=== PATIENT | female | born 2000 | race African-American/Black ===

== ENCOUNTER 2021-06-20 18:00 | Emergency (ER) | payer BC, MEDICAID ==
[~2021-06-20] VITALS: Ht 154.9 cm; Wt 112.1 kg
[2021-06-20 18:03] VITALS: BP 167/98
--- NOTE | 2021-06-20 18:13 | ED GI ---
General Chief Complaint: Abdominal/GI Problems Stated Complaint: PELVIC PAIN History of Present Illness Date Seen by Provider: Jun 20, 2021 Time Seen by Provider: 18:13 Initial Comments 21-year-old female presents with intermittent vaginal pain. States she is getting "vaginal spasm", occurring intermittently and lasting a few seconds. Denies vaginal discharge or pelvic pain. She does have an IUD and was recently seen for the same thing without a pelvic exam. She is sexually active. Allergies and Home Medications Home Medications Ibuprofen 800 Mg Tablet, 800 MG PO Q8H PRN for PAIN Prescribed by: JACQUELINE BLANKENSHIP on 06/20/211834 Metronidazole 500 Mg Tablet, 500 MG PO BID Prescribed by: JACQUELINE CALLAHANSTLEAH on 06/20/211834 Patient Home Medication List Home Medication List Reviewed: Yes Review of Systems Review of Systems Constitutional: no symptoms reported Gastrointestinal: No Symptoms Reported; Denies Abdominal Pain, Denies Nausea, D enies Vomiting Genitourinary: See HPI; Denies Frequency, Denies Flank Pain; Pain Past Zdjimsz-Oplvpc-Abcqya Hx Patient Social History Tobacco Use?: No Physical Exam Vital Signs Vital Signs - First Documented 06/20/21 18:03 Temp 36.2 Pulse 93 Resp 16 B/P (MAP) 167/98 (121) Pulse Ox 100 O2 Delivery Room Air Capillary Refill : Height/Weight/BMI Height: '" Weight: lbs. oz. kg; BMI Method: General Appearance: WD/WN, no apparent distress Gastrointestinal: normal bowel sounds, non tender, soft; No guarding, No rebound Genital/Rectal: normal genital exam, normal vaginal exam, other (strings of IUD appropriately at the cervical os. profuse white discharge w fishy odor (c/w BV)) Progress/Results/Core Measures Results/Orders Lab Results Laboratory Tests Test 06/20/21 18:03 Range/Units Urine Color YELLOW Urine Clarity CLEAR Urine pH 7.0 5-9 Urine Specific [place] 1.010 L 1.016-1.022 Urine Protein NEGATIVE NEGATIVE Urine Glucose (UA) NEGATIVE NEGATIVE Urine Ketones NEGATIVE NEGATIVE Urine Nitrite NEGATIVE NEGATIVE Urine Bilirubin NEGATIVE NEGATIVE Urine Urobilinogen 0.2 < = 1.0 MG/DL Urine Leukocyte Esterase NEGATIVE NEGATIVE Urine RBC (Auto) NEGATIVE NEGATIVE Urine RBC NONE /HPF Urine WBC NONE /HPF Urine Squamous Epithelial Cells 2-5 /HPF Urine Crystals NONE /LPF Urine Bacteria NEGATIVE /HPF Urine Casts NONE /LPF Urine Mucus NEGATIVE /LPF Urine Culture Indicated NO My Orders Orders - JACQUELINE BLANKENSHIP DO Urinalysis (06/20/21 18:16) Vital Signs/I&O 06/20/21 18:03 Temp 36.2 Pulse 93 Resp 16 B/P (MAP) 167/98 (121) Pulse Ox 100 O2 Delivery Room Air Progress Progress Note : Progress Note Empiric treatment for bacterial vaginosis, explained the patient that this is not likely the cause of her "vaginismus" and follow-up is highly recommended. Departure Impression Primary Impression: Vaginismus Additional Impression: Bacterial vaginitis Disposition: HOME, SELF-CARE Condition: Improved Departure-Patient Inst. Decision time for Depature: 18:35 Referrals: NIK ESCALERA MD NO,LOCAL PHYSICIAN (PCP) Primary Care Physician Patient Instructions: Vaginismus, Bacterial Vaginosis (DC) Add. Discharge Instructions: See your local PCP or call Dr Escalera to schedule a female exam and evaluation in 2 weeks All discharge instructions reviewed with patient and/or family. Voiced understanding. Scripts Ibuprofen (Ibuprofen) 800 Mg Tablet 800 MG PO Q8H PRN for PAIN, #30 TAB 0 Refills Prov: LONDONSTJACQUELINE LYNN DO 06/20/21 Metronidazole (Metronidazole) 500 Mg Tablet 500 MG PO BID, #14 TAB Prov: JACQUELINE BLANKENSHIP DO 06/20/21 JACQUELINE BLANKENSIHP DO Jun 20, 2021 18:13
[2021-06-20 18:35] LABS: BACTERIA,URINE NEGATIVE /HPF; BILIRUBIN,URINE NEGATIVE (NEGATIVE); CLARITY,URINE CLEAR; COLOR,URINE YELLOW; GLUCOSE, URINE (UA) NEGATIVE (NEGATIVE); KETONES,URINE NEGATIVE (NEGATIVE); LEUKOCYTE ESTERASE ,URINE NEGATIVE (NEGATIVE); NITRITE,URINE NEGATIVE (NEGATIVE); PROTEIN,URINE NEGATIVE (NEGATIVE)
[2021-06-20] MEDS ORDERED: IBUP-1780 PO (18:35)
[2021-06-20] MEDS ORDERED: METR-145 PO (18:35)
== END 2021-06-20 18:38 | disposition home or self-care (01) ==
LOC: ER FS 18:02
DX: N94.2 Vaginismus (principal); N76.0 Acute vaginitis; Z97.5 Presence of (intrauterine) contraceptive device
CPT/HCPCS: 81000; 84703; 99282

== ENCOUNTER 2021-07-01 13:22 | Emergency (ER) | payer BC, MEDICAID ==
[~2021-07-01] VITALS: Ht 154.9 cm; Wt 106.6 kg
[~2021-07-01 13:22] MED LIST: IBUP-1780 PO; METR-145 PO
[2021-07-01 13:30] VITALS: BP 159/99
--- NOTE | 2021-07-01 13:45 | ED GU-Female ---
General Chief Complaint: - Reproductive Stated Complaint: SUPRAPUBIC PAIN History of Present Illness Date Seen by Provider: Jul 01, 2021 Time Seen by Provider: 13:45 Initial Comments 21-year-old female presents with suprapubic/pelvic pain. Patient reports is been going on for about 2 to 3 days. Patient was seen 2 days ago with an ultrasound by her primary care that showed ovarian cyst along with diagnosis of chlamydia. Patient is currently being treated for chlamydia and she reports she take the medication as prescribed. Patient reports she has irregular menstrual cycles is unsure when her last menstrual cycle was. She reports she is got some small spotting or bleeding. Patient with no other systemic complaints Allergies and Home Medications Allergies Coded Allergies: No Known Drug Allergies (Unverified , 07/01/21) Patient Home Medication List Home Medication List Reviewed: Yes Ibuprofen (Ibuprofen) 800 Mg Tablet, 800 MG PO Q8H PRN for PAIN Prescribed by: JACQUELINE BLANKENSHIP on 06/20/211834 Metronidazole (Metronidazole) 500 Mg Tablet, 500 MG PO BID Prescribed by: JACQUELINE BLANKENSHIP on 06/20/211834 Review of Systems Review of Systems Constitutional: No chills, No fever Respiratory: No cough, No short of breath Genitourinary: see HPI Musculoskeletal: no symptoms reported Skin: no symptoms reported Psychiatric/Neurological: No Symptoms Reported Endocrine: No Symptoms Reported Past Hmupfju-Ohixzi-Furiwz Hx Patient Social History Tobacco Use?: No Smoking Status: Never a Smoker Smokeless Tobacco Frequency: Never a User Substance use?: No Alcohol Use?: No Pt feels they are or have been: No Immunizations Up To Date First/Initial COVID19 Vaccinat: 02/14/21 Second COVID19 Vaccination David: 03/14/21 Past Medical History Surgery/Hospitalization HX: Asthma, Anxiety, Bipolar, Depression Physical Exam Vital Signs Vital Signs - First Documented 07/01/21 13:30 Temp 36.6 Pulse 88 Resp 16 B/P (MAP) 159/99 (119) Pulse Ox 99 O2 Delivery Room Air Capillary Refill : Height, Weight, BMI Height: '" Weight: lbs. oz. kg; 46.00 BMI Method: General Appearance: obese Neck: normal inspection Cardiovascular: normal peripheral pulses, regular rate, rhythm Respiratory: lungs clear, normal breath sounds Gastrointestinal: soft, tenderness (Mild suprapubic) Back: no CVA tenderness Extremities: normal range of motion, non-tender Neurologic/Psychiatric: alert, normal mood/affect, oriented x 3 Skin: normal color, warm/dry Progress/Results/Core Measures Suspected Sepsis SIRS Temperature: Pulse: Respiratory Rate: Blood Pressure / Mean: Results/Orders Lab Results Laboratory Tests Test 07/01/21 13:50 Range/Units Urine Color YELLOW Urine Clarity SLIGHTLY CLOUDY Urine pH 5.5 5-9 Urine Specific [place] 1.025 H 1.016-1.022 Urine Protein TRACE H NEGATIVE Urine Glucose (UA) NEGATIVE NEGATIVE Urine Ketones NEGATIVE NEGATIVE Urine Nitrite NEGATIVE NEGATIVE Urine Bilirubin NEGATIVE NEGATIVE Urine Urobilinogen 0.2 < = 1.0 MG/DL Urine Leukocyte Esterase NEGATIVE NEGATIVE Urine RBC (Auto) 2+ H NEGATIVE Urine RBC 0-2 /HPF Urine WBC 2-5 /HPF Urine Squamous Epithelial Cells 5-10 /HPF Urine Crystals NONE /LPF Urine Bacteria FEW H /HPF Urine Casts PRESENT /LPF Urine Hyaline Casts RARE /LPF Urine Mucus LARGE H /LPF Urine Culture Indicated NO My Orders Orders - MICHAELS,BRENDA L DO Ketorolac Injection (Toradol Injection) (07/01/21 13:51) Ua Culture If Indicated (07/01/21 14:06) Vital Signs/I&O 07/01/21 13:30 Temp 36.6 Pulse 88 Resp 16 B/P (MAP) 159/99 (119) Pulse Ox 99 O2 Delivery Room Air Capillary Refill : Progress Note : Progress Note Patient is mainly here because of pain. I discussed with her that she is already had an ultrasound the shows ovarian cyst along with the testing for chlamydia. Discussed with her that she is already being properly treated. I will give her a Toradol shot for pain. Patient should use some Tylenol and ibuprofen as needed for pain if she needs something stronger she needs to fo llow-up with her primary care provider. Patient should also follow-up next week to have her chlamydia diagnosis rechecked. Patient stable and discharged Departure Impression Primary Impression: Ovarian cyst Qualified Codes: N83.209 - Unspecified ovarian cyst, unspecified side Additional Impression: Chlamydia infection Disposition: 01 HOME, SELF-CARE Condition: Stable Departure-Patient Inst. Referrals: ALETA JONES APRN (PCP) Primary Care Physician [facility] (Family) Primary Care Physician Patient Instructions: Ovarian Cyst ED, Sexually-Transmitted Diseases Add. Discharge Instructions: Tylenol or ibuprofen as needed for pain Warm moist heat to lower abdomen as needed for pain Please follow-up with your primary care provider next week to have your urine and chlamydia infection recheck to ensure that it has resolved. All discharge instructions reviewed with patient and/or family. Voiced understanding. BRENDA MICHAELS DO Jul 01, 2021 13:45
[2021-07-01] MEDS ORDERED: KETOROLAC 60 MG/2 ML VIAL IM STA (13:51)
[2021-07-01 14:15] LABS: BILIRUBIN,URINE NEGATIVE (NEGATIVE); COLOR,URINE YELLOW; GLUCOSE, URINE (UA) NEGATIVE (NEGATIVE); KETONES,URINE NEGATIVE (NEGATIVE); LEUKOCYTE ESTERASE ,URINE NEGATIVE (NEGATIVE); NITRITE,URINE NEGATIVE (NEGATIVE); PH,URINE 5.5 (5-9); PROTEIN,URINE TRACE (NEGATIVE)
[2021-07-01 14:17] LABS: CLARITY,URINE SLIGHTLY CLOUDY
[2021-07-01 14:31] LABS: BACTERIA,URINE FEW /HPF; RBC,URINE 0-2 /HPF
[2021-07-01 14:32] LABS: HYALINE CASTS, URINE RARE /LPF
== END 2021-07-01 14:43 | disposition home or self-care (01) ==
LOC: EDUNIT# 13:22 → ER FS 13:24
DX: N83.209 Unspecified ovarian cyst, unspecified side (principal); A74.9 Chlamydial infection, unspecified; J45.909 Unspecified asthma, uncomplicated
CPT/HCPCS: 81000; 84703; 99284